=== PATIENT | female | born 1930 | race Caucasian/White ===

== ENCOUNTER 2016-06-08 17:19 | Emergency (ER) | payer OTHER ==
[~2016-06-08] VITALS: Ht 165.1 cm; Wt 67.1 kg
--- NOTE | ~2016-06-08 | EKG ---
[place] [address] [facility] [place] [address] ELECTROCARDIOGRAM REPORT Name: JERRI CHOWLLE [id number] Admission: 06/08/16 Attend Phys: Discharge: 06/08/16 Date of : 32 Report #: [id number] THIS REPORT FOR: //name// [facility] ED Test Date: 2016-06-08 Test Time: 20:10:24 Pat Name: STEVEN CHOW Department: Room: Gender: F [employer] [place]: GARCIA : 1930 Requested By: Layla Porter Order Number: [id number] MD: Rico Lowe Measurements Intervals Mobile Rate: 59 P: 48 MN: 233 QRS: -8 QRSD: 105 T: 10 QT: 402 QTc: 399 Interpretive Statements Sinus rhythm Prolonged MN interval Anteroseptal infarct, age indeterminate No previous ECG available for comparison Electronically Signed On 06-09-2016 8:41:24 CDT by Rico Lowe [email or web address] <ELECTRONICALLY SIGNED> By: Rico Lowe MD, [facility] 06/09/16 0841 09 09 Rico Lowe MD, FACC /EPI
[~2016-06-08 17:19] MED LIST: ASPIRIN81 M2 PO; COUMADIN 2.5MG2.5 M1 PO; COUMADIN 5 MG TA5 M1 PO; NITROGLYCERIN0.4 MG SL
[2016-06-08 18:40] LABS: HEMATOCRIT 39.6 % (37.0-47.0); HEMOGLOBIN 13.6 gm/dL (12.0-15.0); MCH 31.8 pg (26.0-34.0); MCHC 34.3 g/dL (28.0-37.0); MCV 92.7 fL (80.0-100.0); PLATELET COUNT 229 thou/uL (150-400); RBC 4.27 mil/uL (4.20-5.00); RDW 13.3 % (10.5-14.5); WBC 10.4 thou/uL (4.0-11.0)
[2016-06-08 18:41] LABS: MANUAL DIFF YES
[2016-06-08] MEDS ORDERED: ASPIR 8181 MG PO (18:52)
[2016-06-08 18:53] LABS: ANION GAP 9 mmol/L (7-16); BUN 21 mg/dL (7-18); CHLORIDE 93 mmol/L (98-107); CO2 24 mmol/L (21-32); CREATININE 1.1 mg/dL (0.6-1.0); GLUCOSE 102 mg/dL (74-106); POTASSIUM 4.4 mmol/L (3.5-5.1); SODIUM 126 mmol/L (136-145)
[2016-06-08] MEDS ORDERED: COUMADIN 5 MG TA5 M1 PO (18:53)
[2016-06-08 18:58] LABS: ALBUMIN 3.6 g/dL (3.4-5.0); ALKALINE PHOSPHATASE 73 U/L (46-116); APTT 38.6 Seconds (24.5-32.8); DIRECT BILIRUBIN 0.2 mg/dL (<0.1-0.3); INR 2.9; MAGNESIUM 1.9 mg/dL (1.8-2.4); NT-PRO BRAIN NAT PEPTIDE 312 pg/mL (<300); PROTIME 30.5 Seconds (9.3-11.4); SGOT 31 U/L (15-37); SGPT 34 U/L (30-65); TOTAL BILIRUBIN 0.8 mg/dL (<0.1-1.0); TOTAL PROTEIN 7.6 g/dL (6.4-8.2); TROPONIN-I < 0.04 ng/mL (<0.04-0.07)
[2016-06-08 19:08] LABS: ABSOLUTE NEUTROPHILS 9.4 thou/uL (1.4-8.2); TOTAL CELL COUNT 100
[2016-06-08] MEDS ORDERED: VANCOMYCIN125 MG/2.1 PO (22:22)
[2016-06-08 22:50] VITALS: BP 132/76
== END 2016-06-08 22:50 | disposition home or self-care (01) ==
LOC: ER 17:19
PROVIDERS: Emergency Medicine
DX: R19.7 Diarrhea, unspecified (principal); I25.2 Old myocardial infarction

== ENCOUNTER 2016-06-09 19:00 | Inpatient (IN) | payer OTHER ==
[~2016-06-09] VITALS: Ht 165.1 cm; Wt 67.1 kg
--- NOTE | ~2016-06-09 | HC ---
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 HISTORY OF PRESENT ILLNESS: The patient is an 85-year-old with underlying cerebrovascular disease and coronary artery disease. She has got some dementia. She lives with her daughter, had been in [place] up to past 4 months when she came back to live with her daughter. It is noted that in 2011 following her coronary bypass, she had further complications, one of which was C. difficile colitis. This was treated with vancomycin and improved. She had one relapse in March after treatment for a left ear infection. This again responded to vancomycin after approximately 7 days of treatment. She did run out of her medication after 7 days. Stools then were normal. Two days ago, she had acute onset of fever, chills, abdominal discomfort along with diarrhea, some abdominal pain on the left side. She presented to the emergency room where CAT scan showed evidence of proctitis. Stool for C. diff PCR is still pending. She was given oral vancomycin but due to her progressive decline and confusional state, she is brought back into hospital for further care. Currently, the patient is without discomfort. She is confused. No complaint of abdominal pain. She is incontinent of loose stool with mucus. No gross blood. No dysuria. No cough or sputum production. No chest pain. REVIEW OF SYSTEMS: Otherwise, unremarkable. ALLERGIES: , CIPROFLOXACIN, TETRACYCLINE. MEDICATIONS: Include vancomycin and metronidazole. Other medications include aspirin and Coumadin. PAST MEDICAL HISTORY: [place], cerebrovascular dementia, DVT, coronary bypass grafting, tonsillectomy, cataracts, hard of hearing, DVT. FAMILY HISTORY: Heart disease, hypertension and vascular disease. SOCIAL HISTORY: Nonsmoker, no significant alcohol intake. PHYSICAL EXAMINATION: VITAL SIGNS: Currently, afebrile, hemodynamically stable. GENITOURINARY: She was incontinent of soft to loose stool. SKIN: Unremarkable. LYMPH: Unremarkable. EYES: Unremarkable. [address] [address] CONSULTATION Name: PANCHITO CHOWSTEVEN Room #: 457-P [facility] IN M.R.#: [id number] Admission: 06/09/16 Attend Phys: Rowdy Winter MD Discharge: Date of : 32 Report #: [id number] MOUTH: Unremarkable. NECK: Supple, no adenopathy. LUNGS: Clear. HEART: Regular without murmur. ABDOMEN: Soft and nontender. No hepatosplenomegaly or mass. RECTAL: Small amount of mucousy stool present, no masses. EXTREMITIES: Unremarkable. NEUROLOGIC: Other than being confused, was nonfocal. LABORATORY STUDIES: Sodium 135, potassium 3.8, bicarbonate 22, creatinine 1, liver function test normal. Hemoglobin 12.8, white count 10.3 with 78% segs, 7% bands, platelet count 196,000. Stool culture is negative so far. C. diff is pending. CT scan of the abdomen showed evidence of proctitis. 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 Other consideration would be ischemic bowel. No evidence of inflammatory bowel disease by history. Her last colonoscopy was about 6 years ago, which was unremarkable. Would recommend continuing with high doses of vancomycin orally and intravenous metronidazole. We will await Clostridium difficile by PCR. Given that this is the third episode, will likely need endoscopy to further evaluate her mucosa. If this is her third episode of Clostridium difficile colitis, would consider fecal transplant. <ELECTRONICALLY SIGNED> By: Sesar Layne MD 06/11/16 1024 [id number] 1600 Sesar Layne MD /nt
[~2016-06-09 19:00] MED LIST changes: +ASPIR 8181 MG PO; +VANCOMYCIN125 MG/2.1 PO
[2016-06-09 19:08] VITALS: BP 145/48
[2016-06-09 20:00] LABS: HEMATOCRIT 41.1 % (37.0-47.0); HEMOGLOBIN 14.1 gm/dL (12.0-15.0); MCH 31.8 pg (26.0-34.0); MCHC 34.3 g/dL (28.0-37.0); MCV 92.6 fL (80.0-100.0); PLATELET COUNT 233 thou/uL (150-400); RBC 4.43 mil/uL (4.20-5.00); RDW 13.1 % (10.5-14.5); WBC 11.3 thou/uL (4.0-11.0)
[2016-06-09 20:05] LABS: ANION GAP 8 mmol/L (7-16); BUN 19 mg/dL (7-18); CHLORIDE 97 mmol/L (98-107); CO2 27 mmol/L (21-32); GLUCOSE 123 mg/dL (74-106); MANUAL DIFF YES; POTASSIUM 4.3 mmol/L (3.5-5.1); SODIUM 132 mmol/L (136-145)
[2016-06-09 20:09] LABS: ALBUMIN 3.8 g/dL (3.4-5.0); ALKALINE PHOSPHATASE 82 U/L (46-116); DIRECT BILIRUBIN < 0.1 mg/dL (<0.1-0.3); SGOT 29 U/L (15-37); SGPT 32 U/L (30-65); TOTAL BILIRUBIN 0.6 mg/dL (<0.1-1.0)
[2016-06-09 22:11] VITALS: BP 123/47
[2016-06-09 22:40] VITALS: BP 117/58
[2016-06-09 22:49] LABS: ABSOLUTE NEUTROPHILS 9.9 thou/uL (1.4-8.2); TOTAL CELL COUNT 100
[2016-06-10 04:10] VITALS: BP 126/64
[2016-06-10 06:08] LABS: HEMATOCRIT 38.2 % (37.0-47.0); HEMOGLOBIN 12.8 gm/dL (12.0-15.0); MCH 31.8 pg (26.0-34.0); MCHC 33.5 g/dL (28.0-37.0); MCV 94.7 fL (80.0-100.0); PLATELET COUNT 196 thou/uL (150-400); RBC 4.03 mil/uL (4.20-5.00); RDW 13.3 % (10.5-14.5); WBC 10.3 thou/uL (4.0-11.0)
[2016-06-10 06:17] LABS: INR 2.8; PROTIME 28.7 Seconds (9.3-11.4)
[2016-06-10 06:22] LABS: MANUAL DIFF YES
[2016-06-10 06:29] LABS: CALCIUM 8.6 mg/dL (8.5-10.1); MAGNESIUM 1.6 mg/dL (1.8-2.4); POTASSIUM 3.8 mmol/L (3.5-5.1); TOTAL BILIRUBIN 0.7 mg/dL (<0.1-1.0); TOTAL PROTEIN 6.2 g/dL (6.4-8.2)
[2016-06-10 07:15] VITALS: BP 130/54
[2016-06-10 08:15] LABS: ABSOLUTE NEUTROPHILS 8.8 thou/uL (1.4-8.2); ATYPICAL LYMPHS 2 %; TOTAL CELL COUNT 100
[2016-06-10 08:16] LABS: ANISOCYTOSIS SLIGHT; POIKILOCYTOSIS SLIGHT
[2016-06-10 11:45] VITALS: BP 110/57
[2016-06-10 16:13] VITALS: BP 130/55
[2016-06-10 19:08] VITALS: BP 116/46
[2016-06-11 02:54] VITALS: BP 147/60
[2016-06-11 07:18] VITALS: BP 136/60
[2016-06-11 11:25] LABS: HEMATOCRIT 38.4 % (37.0-47.0); HEMOGLOBIN 12.8 gm/dL (12.0-15.0); MCH 31.2 pg (26.0-34.0); MCHC 33.4 g/dL (28.0-37.0); MCV 93.6 fL (80.0-100.0); RBC 4.1 mil/uL (4.20-5.00); RDW 13.4 % (10.5-14.5); WBC 6.7 thou/uL (4.0-11.0)
[2016-06-11 11:35] LABS: CALCIUM 8.8 mg/dL (8.5-10.1); CREATININE 0.9 mg/dL (0.6-1.0); POTASSIUM 3.4 mmol/L (3.5-5.1)
[2016-06-11 12:06] VITALS: BP 131/59
[2016-06-11 16:58] VITALS: BP 132/59
[2016-06-11 20:14] VITALS: BP 124/51
[2016-06-12 05:44] VITALS: BP 109/83
[2016-06-12] MEDS ORDERED: ACIDOPHILUS1 EAC4 PO (13:36)
[2016-06-12] MEDS ORDERED: COUMADIN 5 MG TA5 M1 PO (15:03)
[2016-06-12] MEDS ORDERED: COUMADIN 2.5MG2.5 M1 PO (15:03)
== END 2016-06-12 16:31 | DRG 371 ==
LOC: ER 19:00 → EROBS 21:32 → 4W 21:32
PROVIDERS: Emergency Medicine; Internal Medicine; Nurse Practitioner
DX: A04.7 Enterocolitis due to Clostridium difficile (principal); G93.49 Other encephalopathy; E87.1 Hypo-osmolality and hyponatremia; I25.10 Atherosclerotic heart disease of native coronary artery without angina pectoris; H91.90 Unspecified hearing loss, unspecified ear; F01.50 Vascular dementia, unspecified severity, without behavioral disturbance, psychotic disturbance, mood disturbance, and anxiety; Z88.1 Allergy status to other antibiotic agents; Z88.8 Allergy status to other drugs, medicaments and biological substances; I25.2 Old myocardial infarction; Z86.73 Personal history of transient ischemic attack (TIA), and cerebral infarction without residual deficits; Z86.718 Personal history of other venous thrombosis and embolism; Z95.1 Presence of aortocoronary bypass graft; Z82.49 Family history of ischemic heart disease and other diseases of the circulatory system
CPT/HCPCS: 10045

== ENCOUNTER 2017-04-06 05:37 | Inpatient (IN) | payer OTHER ==
[~2017-04-06] VITALS: Ht 127 cm; Wt 65.3 kg
[~2017-04-06 05:37] MED LIST changes: +ACIDOPHILUS1 EAC4 PO
[2017-04-06 05:38] VITALS: BP 160/65
[2017-04-06] MEDS ORDERED: COUMADIN 5 MG TA5 M1 PO (05:48)
[2017-04-06 05:55] LABS: URINE BILIRUBIN NEGATIVE (Negative); URINE BLOOD 3+ (Negative); URINE CLARITY SL CLOUDY; URINE COLOR YELLOW; URINE GLUCOSE-RANDOM* NEGATIVE (Negative); URINE KETONES NEGATIVE (Negative); URINE PROTEIN (DIPSTICK) 1+ (Negative); URINE SPECIFIC GRAVITY 1.015 (1.005-1.035); URINE UROBILINOGEN 0.2 E.U./dl (0.2-1.0)
[2017-04-06 05:57] LABS: URINE LEUKOCYTES-REFLEX 1+ (Negative); URINE NITRITE-REFLEX POSITIVE (Negative)
[2017-04-06] MEDS ORDERED: PROBIOTIC1 EAC1 PO (05:57)
[2017-04-06 06:11] LABS: CASTS None Seen /LPF (None Seen); MUCUS None Seen strn/LPF (None Seen); SQUAMOUS None Seen /LPF (0-3); URINE WBC-REFLEX >25 Many /HPF (0-5)
[2017-04-06 06:12] LABS: HEMATOCRIT 40.2 % (37.0-47.0); HEMOGLOBIN 13.9 gm/dL (12.0-15.0); MCH 32.1 pg (26.0-34.0); MCHC 34.5 g/dL (28.0-37.0); MCV 93.1 fL (80.0-100.0); PLATELET COUNT 235 thou/uL (150-400); RBC 4.32 mil/uL (4.20-5.00); RDW 12.3 % (10.5-14.5); WBC 6.1 thou/uL (4.0-11.0)
[2017-04-06 06:12] LABS: BACTERIA-REFLEX >30 Many /HPF (None Seen); CRYSTALS None Seen /LPF (None Seen); WBC CLUMPS Moderate (None Seen)
[2017-04-06 06:21] LABS: CALCIUM 9.6 mg/dL (8.5-10.1); CREATININE 1.1 mg/dL (0.6-1.0); POTASSIUM 4.4 mmol/L (3.5-5.1)
[2017-04-06 07:16] VITALS: BP 148/52
[2017-04-06 07:45] LABS: INR 2.7; PROTIME 27.6 Seconds (9.3-11.4)
[2017-04-06] MEDS ORDERED: COUMADIN 2.5MG2.5 M1 PO (08:00)
[2017-04-06] MEDS ORDERED: ASPIR 8181 MG PO (08:01)
[2017-04-06 08:31] LABS: ABSOLUTE NEUTROPHILS 4.9 thou/uL (1.4-8.2)
[2017-04-06 09:05] VITALS: BP 130/51
[2017-04-06 20:00] VITALS: BP 130/51; BP 134/61
[2017-04-07 04:00] VITALS: BP 149/57
[2017-04-07 06:50] LABS: HEMATOCRIT 34.1 % (37.0-47.0); MCH 32.3 pg (26.0-34.0); MCHC 34.6 g/dL (28.0-37.0); MCV 93.4 fL (80.0-100.0); PLATELET COUNT 210 thou/uL (150-400); RBC 3.65 mil/uL (4.20-5.00); WBC 6.8 thou/uL (4.0-11.0)
[2017-04-07 06:52] LABS: HEMOGLOBIN 11.8 gm/dL (12.0-15.0)
[2017-04-07 07:03] LABS: CALCIUM 8.7 mg/dL (8.5-10.1); CREATININE 0.9 mg/dL (0.6-1.0); POTASSIUM 3.9 mmol/L (3.5-5.1)
[2017-04-07 07:33] VITALS: BP 144/47
[2017-04-07 08:10] LABS: ABSOLUTE NEUTROPHILS 4.3 thou/uL (1.4-8.2); ANISOCYTOSIS SLIGHT; METAMYELOCYTES 1 %
[2017-04-07 15:21] VITALS: BP 127/65
[2017-04-07 19:45] VITALS: BP 122/47
[2017-04-08 03:15] VITALS: BP 160/72
[2017-04-08 05:32] LABS: HEMATOCRIT 33.4 % (37.0-47.0); HEMOGLOBIN 11.4 gm/dL (12.0-15.0); MCH 32.2 pg (26.0-34.0); MCHC 34.1 g/dL (28.0-37.0); MCV 94.3 fL (80.0-100.0); RBC 3.54 mil/uL (4.20-5.00); RDW 12.7 % (10.5-14.5); WBC 5.8 thou/uL (4.0-11.0)
[2017-04-08 05:38] LABS: INR 2.4; PROTIME 24.4 Seconds (9.3-11.4)
[2017-04-08 05:45] LABS: CALCIUM 8.5 mg/dL (8.5-10.1); CREATININE 0.8 mg/dL (0.6-1.0); POTASSIUM 4.2 mmol/L (3.5-5.1)
[2017-04-08 08:46] VITALS: BP 159/57
[2017-04-08 19:05] VITALS: BP 130/53
[2017-04-09 03:50] VITALS: BP 144/70
[2017-04-09 05:55] LABS: ALBUMIN 2.7 g/dL (3.4-5.0); CALCIUM 9.2 mg/dL (8.5-10.1); CREATININE 0.9 mg/dL (0.6-1.0); MAGNESIUM 2.1 mg/dL (1.8-2.4); PHOSPHORUS 3.8 mg/dL (2.5-4.9); POTASSIUM 4.7 mmol/L (3.5-5.1); TOTAL BILIRUBIN 0.2 mg/dL (<0.1-1.0); TOTAL PROTEIN 6.8 g/dL (6.4-8.2)
[2017-04-09 10:35] VITALS: BP 114/78
[2017-04-09 15:40] VITALS: BP 114/78
[2017-04-09 17:03] VITALS: BP 154/52
[2017-04-09] MEDS ORDERED: KEFLEX500 M1 PO (17:34)
[2017-04-26] MEDS ORDERED: VITAMIN B-1100 M1 PO (15:51)
[2017-04-26] MEDS ORDERED: VITAMIN D34000 UNIT PO (15:51)
[2017-04-26] MEDS ORDERED: VITAMIN B-12500 MCG PO (15:54)
[2017-04-26] MEDS ORDERED: SELENIMIN50 MCG PO (15:55)
[2017-04-26] MEDS ORDERED: FISH OIL 1,001000 M2 PO (15:55)
[2017-04-26] MEDS ORDERED: MAGNESIUM OXID200 MG PO (15:56)
== END 2017-04-09 19:12 | disposition home or self-care (01) | DRG 682 ==
LOC: ER 05:37 → EROBS 06:20 → 3W 06:20 → ENTRNSPT 04-09 18:22 → 3W 04-09 19:12
PROVIDERS: Emergency Medicine; Hospitalist; Nurse Practitioner; Registered Nurse
DX: N17.9 Acute kidney failure, unspecified (principal); E43 Unspecified severe protein-calorie malnutrition; N39.0 Urinary tract infection, site not specified; R78.81 Bacteremia; E87.1 Hypo-osmolality and hyponatremia; Z68.41 Body mass index [BMI] 40.0-44.9, adult; E86.0 Dehydration; I10 Essential (primary) hypertension; F01.50 Vascular dementia, unspecified severity, without behavioral disturbance, psychotic disturbance, mood disturbance, and anxiety; I25.10 Atherosclerotic heart disease of native coronary artery without angina pectoris; Z88.1 Allergy status to other antibiotic agents; Z88.2 Allergy status to sulfonamides; Z88.8 Allergy status to other drugs, medicaments and biological substances; Z95.1 Presence of aortocoronary bypass graft; Z79.01 Long term (current) use of anticoagulants; Z79.899 Other long term (current) drug therapy; I25.2 Old myocardial infarction; Z86.718 Personal history of other venous thrombosis and embolism
CPT/HCPCS: 10080

== ENCOUNTER → 2017-04-26 | Outpatient (CLI) | payer OTHER ==
[~2017-04-26] VITALS: Ht 157.5 cm; Wt 66.7 kg
[~2017-04-26] MED LIST changes: +FISH OIL 1,001000 M2 PO; +KEFLEX500 M1 PO; +MAGNESIUM OXID200 MG PO; +PROBIOTIC1 EAC1 PO; +SELENIMIN50 MCG PO; +VITAMIN B-1100 M1 PO; +VITAMIN B-12500 MCG PO; +VITAMIN D34000 UNIT PO
[2017-04-26 14:18] VITALS: BP 114/65
== END ==
LOC: SEN 08:29
DX: I25.10 Atherosclerotic heart disease of native coronary artery without angina pectoris (principal); F03.90 Unspecified dementia, unspecified severity, without behavioral disturbance, psychotic disturbance, mood disturbance, and anxiety; R53.81 Other malaise; Z79.899 Other long term (current) drug therapy